=== PATIENT | female | born 1960 | race American Indian/Alaskan Native ===

== ENCOUNTER 2017-05-29 11:05 | Emergency (ER) | payer OTHER ==
[~2017-05-29] VITALS: Ht 175.3 cm; Wt 77.7 kg
[~2017-05-29 11:05] MED LIST: ACYCLOVIR400 MG PO; ASPIR-TRIN325 MG PO; ASPIRIN325 MG PO; BENADRYL25 MG PO; BRINTELLIX5 MG PO; CYMBALTA30 MG PO; EPIPEN JR.0.15 MG/0. IM; METHADONE10 MG PO; MIRALAX17 GM PO; MORPHINE SULFAT15 M1 PO; MORPHINE SULFAT15 MG PO; MS CONTIN,ORAMO30 MG PO; MS CONTIN,ORAMO60 MG PO; NEXIUM20 MG PO; OXYCODONE HCL10 MG PO; PERCOCET 5/31 TABLET PO; PREDNISONE50 MG PO; PRILOSEC20 MG PO; SEROQUEL50 MG PO; TAGAMET400 MG PO; TIZANIDINE HCL2 M1 PO; VALIUM10 MG PO; VALIUM5 MG PO; VERAPAMIL HCL240 M2 PO; VERAPAMIL HCL240 MG PO; VISTARIL25 MG PO; ZANTAC300 MG PO
[2017-05-29 12:17] LABS: HEMATOCRIT 42.2 % (36.0-46.0); MCH 28.9 PG (29.0-34.0); MCHC 33.6 G/DL (30.0-36.0); MCV 85.8 FL (83-99); MEAN PLAT.VOLUME 9.9 uM^3 (9.5-12.4); PLATELET COUNT 214 K/uL (156-360); RBC DIS.WIDTH-CV 12.9 % (11.8-14.6); RBC DIS.WIDTH-SD 40.2 % (39-53); RED BLOOD COUNT 4.92 M/uL (3.80-5.20); WHITE BLOOD COUNT 7.4 K/uL (4.1-10.2)
[2017-05-29 12:26] LABS: CHLORIDE 102 mEq/L (99-109); POTASSIUM 3.9 mEq/L (3.7-5.4); SODIUM 140 mEq/L (136-147)
[2017-05-29 12:28] LABS: GLUCOSE 95 mg/dL (70-99)
[2017-05-29 12:29] LABS: ANION GAP 12 MEQ/L (2-14)
[2017-05-29 12:32] LABS: GFR ESTIMATE (CALCULATED) > 59 mL/min/
[2017-05-29 12:33] LABS: UREA NITROGEN (BUN) 18 mg/dL (9-23)
[2017-05-29 12:38] LABS: TROP-I INTERPRETATION NEGATIVE; TROPONIN-I < 0.01 ng/mL (0.0-0.30)
[2017-05-29 15:39] LABS: TROP-I INTERPRETATION NEGATIVE; TROPONIN-I < 0.01 ng/mL (0.0-0.30)
[2017-05-29 16:11] VITALS: BP 126/82
== END 2017-05-29 16:12 | disposition home or self-care (01) ==
LOC: EME 11:05
PROVIDERS: Emergency Medicine
DX: R00.2 Palpitations (principal); R07.9 Chest pain, unspecified
CPT/HCPCS: 71020; 80048; 84484; 85027; 93005; 99281; 99284